=== PATIENT | male | born 2005 | race Two or more races ===

== ENCOUNTER 2024-09-02 16:58 | Emergency (ER) | payer MEDICAID, OTHER ==
[2024-09-02 18:25] VITALS: BP 110/64; PULSE 72; RESP 72; TEMP 98; O2SAT 97
[2024-09-02] MEDS ORDERED: CIPR-173 PO (18:55)
--- NOTE | 2024-09-02 18:55 | ED.PDOC ---
Back pain HPI HPI Comments PATIENT BROUGHT IN BY STEP FATHER FOR LEFT ELBOW PAIN AFTER SLIPPING OUT OF FATHER'S HANDS WHILE GETTING BATHED YESTERDAY. REDNESS TO LEFT ELBOW. STEP FATHER ALSO WANTS HIM TESTED FOR UTI, STATES +ODOR AND DARK URINE STATES HISTORY OF CHRONIC UTIS. REPORTS CONCERN HAS SURGERY COMING UP FOR HARDWARE REPLACEMENT OF HIS BACK DUE TO A ABSCESS. STATES WOULD LIKE TO HAVE IT TREATED PRIOR SO SURGERY WILL NOT BE CANCELED. PATIENT SELF CATHS. DENIES FEVERS, CHILLS, NAUSEA, VOMITING, WEAKNESS, NUMBNESS, CHEST PAIN, SHORTNESS BREATH, DIFFICULTY BREATHING. Chief Complaint: Upper Extremity Time Seen by MD: 18:08 Primary Care Provider: ARCHANA Reviewed Notes: Nurses Notes, Medications, Allergies Allergies: Coded Allergies: Latex (Verified Allergy, Unknown, 09/02/24) Uncoded Allergies: RED ZONE (Allergy, Unknown, 09/02/24) Home Meds Active Scripts Ciprofloxacin Hcl (Cipro) 500 Mg Tab, 500 MG PO BID for 7 Days, #14 TAB Prov:VINAY WEI MOLD STRIPPER 09/02/24 Information Source: Patient, Relative Mode of Arrival: Wheelchair Constitutional: denies: chills, diaphoresis, fatigue, fever, malaise, sweats, weakness, others EENTM: denies: blurred vision, double vision, ear bleeding, ear discharge, ear drainage, ear pain, ear ringing, eye pain, eye redness, hearing loss, mouth pain, mouth swelling, nasal discharge, nose bleeding, nose congestion, nose pain, photophobia, tearing, throat pain, throat swelling, voice changes, others Respiratory: denies: cough, hemoptysis, orthopnea, SOB at rest, shortness of breath, SOB with excertion, stridor, wheezing, others Cardiovascular: denies: chest pain, dizzy spells, diaphoresis, Dyspnea on exertion, edema, irregular heart beat, left arm pain, lightheadedness, palpitations, PND, syncope, others Gastrointestinal: denies: abdomen distended, abdominal pain, blood streaked bowels, constipated, diarrhea, dysphagia, difficulty swallowing, hematemesis, melena, nausea, poor appetite, poor fluid intake, rectal bleeding, rectal pain, vomiting, others Genitourinary: reports: others (ODOR AND DARK URINE); denies: burning, dysuria, flank pain, frequency, hematuria, incontinence, penile discharge, penile sore, pain, testicle pain, testicle swelling, urgency Neurological: denies: dizziness, fainting, headache, left sided numbness, left sided weakness, numbness, paresthesia, pre-existing deficit, right sided numbness, right sided weakness, seizure, speech problems, tingling, tremors, weakness, others Musculoskeletal: denies: back pain, gout, joint pain, joint swelling, muscle pain, muscle stiffness, neck pain, others Integumetry: denies: bruises, change in color, change in hair/nails, dryness, laceration, lesions, lumps, rash, wounds, others Allergic/Immunocompromised: denies: Difficulty Healing, Frequent Infections, Hives, Itching, others Hematologic/Lymphatic: denies: anemia, blood clots, easy bleeding, easy bruising, swollen glands, others Endocrine: denies: excessive hunger, excessive sweating, excessive thirst, excessive urination, flushing, intolerance to cold, intolerance to heat, unexplained weight gain, unexplained weight loss, others Psychiatric: denies: anxiety, bipolar disorder, depression, hopeless, panic disorder, schizophrenia, sleepless, suicidal, others Physical Exam General Appearance: No Apparent Distress, Normal HEENT: Pharynx Normal Neck: Full Range of Motion, Non-Tender Respiratory: Lungs Clear, No Respiratory Distress, Normal Breath Sounds Cardiovascular: No Edema, No JVD, No Murmur, No Gallop, Normal Peripheral Pulses, Regular Rate/Rhythm Breast Exam: Deferred Gastrointestinal: No Organomegaly, Non Tender, No Pulsatile Mass, Normal Bowel Sounds, Soft Genitalia: Deferred Pelvic: Deferred Rectal: Deferred Extremities: Normal capillary refill, Normal inspection, Normal range of motion, Non-tender, No pedal edema Musculoskeletal : Location: Left Extremity Location: Elbow (MILD TENDERNESS PALPATED OVER LATERAL EPICONDYLE WITHOUT NOTED ABRASIONS, LESIONS, LACERATIONS NO NOTED ECCHYMOSIS TRACE EDEMA STRENGTH SENSORY MOTION INTACT POSITIVE PEDAL PULSE) Apperance: Normal Neurologic: Alert, hogshead opener II-XII nml as Tested, No Motor Deficits, Normal Affect, Normal Mood, No Sensory Deficits Cerebellar Function: Normal Reflexes: Normal Skin: Dry, Normal Color, Warm Lymphatic: No Adenopathy Was a procedure done? Was a procedure done?: No Back Pain Differential Dx Differential Diagnosis: Fracture, Musculoskeletal Pain X-Ray, Labs, Meds, VS Vital Signs Date Time Temp Pulse Resp B/P (MAP) Pulse Ox O2 Delivery O2 Flow Rate FiO2 09/02/24 18:25 98.0 72 16 110/64 (79) 97 98.0 09/02/24 18:25 72 72 97 Room Air 09/02/24 17:15 98.2 69 18 111/62 (78) 96 X-Ray, Labs, Meds, VS Comment LEFT ELBOW X-RAY SHOWS NO DISLOCATION, OSSEOUS LESIONS, ACUTE FRACTURES. LIKELY CONTUSION. ADVISED TO REST, ICE, DISCUSSED [id number] IBUPROFEN. SCRIPT CIPRO 500 MG TWICE DAILY X7 DAYS PATIENT REPORTS CHRONIC HISTORY OF UTIS CONCERN SURGERIES, NOT AND WOULD LIKE TO BE TREATED PATIENT SELF CATHS HAS TAKEN CIPRO IN THE PAST WITH SUCCESS.. FOLLOW UP WITH PCP IN 1-2 DAYS. REST INCREASE P.O. FLUIDS WITH ELECTROLYTES. ER RETURN PRECAUTIONS GIVEN PATIENT CHIPPED AND CARE PROVIDER INDICATES UNDERSTANDING AGREES WITH DISCHARGE PLAN OF CARE Time of 1ST Reevaluation: 19:25 Reevaluation 1ST: Improved Patient Education/Counseling: Diagnosis, Treatment, Prognosis, Need For Follow Up Family Education/Counseling: Diagnosis, Treatment, Prognosis, Need For Follow Up Departure 1 Departure Time of Disposition: 19:26 Impression: Primary Impression: UTI (urinary tract infection) Qualified Codes: N30.00 - Acute cystitis without hematuria Additional Impression: Contusion of elbow, left Qualified Codes: S50.02XA - Contusion of left elbow, initial encounter Disposition: HOME / SELF CARE / HOMELESS Condition: Stable e-Prescriptions Ciprofloxacin Hcl (Cipro) 500 Mg Tab 500 MG PO BID for 7 Days, #14 TAB Prov: VINAY WEI 09/02/24 Discharged With: Jewel Inspector Critical Care Note Critical Care Time?: No Stability Stability form required: VINAY Cornejo Sep 02, 2024 18:55
--- NOTE | 2024-09-02 19:09 | DVH ---
CLINICAL INDICATION: fall injury TECHNIQUE: XY L ELBOW 3 VIEW XRAY Comparison: None FINDINGS: No osseous or joint abnormality identified with no evidence of joint effusion, fracture or dislocatio n. Joint spaces are normal. IMPRESSION: No abnormality demonstrated.
== END 2024-09-02 19:35 | disposition home or self-care (01) ==
LOC: ER 16:58
DX: S50.02XA Contusion of left elbow, initial encounter (principal); N39.0 Urinary tract infection, site not specified; Z88.8 Allergy status to other drugs, medicaments and biological substances; X58.XXXA Exposure to other specified factors, initial encounter; Y93.89 Activity, other specified; Y92.89 Other specified places as the place of occurrence of the external cause; Y99.8 Other external cause status
CPT/HCPCS: 73080